=== PATIENT | male | born 1985 | race Caucasian/White ===

== ENCOUNTER 2018-04-30 14:32 | Emergency (ER) | payer BC ==
--- NOTE | 2018-04-30 15:52 | RAD REPORT ---
EXAM DESCRIPTION: RAD - Chest Single View - 04/30/2018 3:34 pm CLINICAL HISTORY: Chest pain, chest tightness COMPARISON: None. TECHNIQUE: AP portable chest image was obtained 1533 hours . FINDINGS: Lungs are clear. Heart and vasculature are normal. No measurable pleural effusion and no p neumothorax. No gross bony abnormality seen. No acute aortic findings suspected. IMPRESSION: No acute cardiopulmonary process.
[2018-04-30 15:53] LABS: Absolute Lymphocytes (CBC) 2.2 K/uL (0.7-4.9); Absolute Monocytes 0.7 K/uL (0.1-1.3); Absolute Neutrophil 5.9 K/uL (1.8-8.0); Basophils % 0.4 % (0-1.3); Eosinophils % 2.2 % (0-4.4); Hematocrit 44.7 % (39.6-49.0); Lymphocytes % 24.4 % (15.3-44.8); MCH 30.1 pg (27.0-35.0); MCV 87.4 fL (80-100); MPV 7.8 fL (7.6-11.3); Monocytes % 7.4 % (3.3-12.3); RBC Red Blood Cell Count 5.11 M/uL (4.33-5.43)
[2018-04-30 16:05] LABS: Potassium 3.8 mEq/L (3.6-5.0)
[2018-04-30 16:11] LABS: Albumin 4.2 g/dL (3.2-5.5); Bilirubin Direct 0.1 mg/dL (0-0.2); Bilirubin Total 0.7 mg/dL (0.3-1.2); Protein, Total 7.6 g/dL (6.0-8.3)
--- NOTE | 2018-04-30 17:23 | ER ---
Nurse's Notes [facility] Name: Nile Gallagher Age: 32 yrs Sex: Male : 1985 Arrival Date: 04/30/2018 Time: 14:35 Bed 30 Private MD: Jonas Flores Diagnosis: Chest pain, unspecified Presentation: 04/30 14:49 Presenting complaint: Patient states: Report chest tightness and left arm tingling for aj 2 days. Reports relief of chest tightness when burping. Transition of care: patient was not received from another setting of care. Onset of symptoms was April 28, 2018. Risk Assessment: Do you want to hurt yourself or someone else? Patient reports no desire to harm self or others. Care prior to arrival: None. 14:49 Method Of Arrival: Ambulatory aj 14:49 Acuity: COLT 3 aj 18:00 Initial Sepsis Screen: Does the patient meet any 2 criteria? No. Patient's initial mb3 sepsis screen is negative. Does the patient have a suspected source of infection? No. Patient's initial sepsis screen is negative. Triage Assessment: 14:51 General: Appears in no apparent distress. comfortable, Behavior is calm, cooperative, aj appropriate for age. Pain: Complains of pain in chest. Neuro: Level of Consciousness is awake, alert, obeys commands, Oriented to person, place, time, situation, Appropriate for age. Neuro: Reports paresthesias in left arm. Cardiovascular: Reports chest pain. Respiratory: Airway is patent Respiratory effort is even, unlabored, Respiratory pattern is regular, symmetrical. Derm: Skin is intact, is healthy with good turgor, Skin is pink, warm \T\ dry. normal. Historical: - Allergies: 14:51 No Known Allergies; aj - Home Meds: 14:51 amlodipine oral [Active]; Buspirone Oral [Active]; pantoprazole oral oral [Active]; aj - PMHx: 14:51 Anxiety; Hypertension; GERD; aj - PSHx: 14:51 Kidney stents; Hernia repair; aj - Immunization history:: Adult Immunizations up to date. - Social history:: Smoking status: Patient/guardian denies using tobacco. - Ebola Screening: : Patient negative for fever greater than or equal to 101.5 degrees Fahrenheit, and additional compatible Ebola Virus Disease symptoms Patient denies exposure to infectious person Patient denies travel to an Ebola-affected area in the 21 days before illness onset No symptoms or risks identified at this time. Screenin:54 Abuse screen: Denies threats or abuse. Nutritional screening: No deficits noted. mb3 Tuberculosis screening: No symptoms or risk factors identified. Fall Risk None identified. Assessment: 15:51 General: Appears in no apparent distress. comfortable, well groomed, Behavior is mb3 cooperative, appropriate for age, anxious. Pain: Denies pain. Complains of pain in has chest pain off and on for over 2 days, worse today Pain does not radiate. Pain began 1 day ago. Neuro: No deficits noted. Level of Consciousness is awake, alert, obeys commands, Oriented to person, place, time, situation, Appropriate for age. Cardiovascular: No deficits noted. Reports chest pain, Heart tones S1 S2 present Capillary refill < 3 seconds Patient's skin is warm and dry. Pulses are all present. Respiratory: No deficits noted. Airway is patent Respiratory effort is even, unlabored, Respiratory pattern is regular, symmetrical, Breath sounds are clear bilaterally. GI: No deficits noted. Abdomen is flat, Bowel sounds present X 4 quads. : No deficits noted. No signs and/or symptoms were reported regarding the genitourinary system. Vital Signs: 14:51 BP 139 / 82; Pulse 88; Resp 19; Temp 98.1; Pulse Ox 97% on R/A; Weight 115.67 kg; aj Height 5 ft. 10 in. (177.80 cm); 16:06 BP 118 / 75; Pulse 71; Resp 16; Pulse Ox 96% on R/A; mb3 17:59 BP 115 / 69; Pulse 64; Resp 16; Pulse Ox 98% on R/A; mb3 14:51 Body Mass Index 36.59 (115.67 kg, 177.80 cm) aj ED Course: 14:35 Patient arrived in ED. as 14:35 Jonas Flores MD is Private Physician. as 14:50 Triage completed. aj 14:51 Arm band placed on right wrist. Patient placed in an exam room. aj 14:59 Henry Garcia, RN is Primary Nurse. mb3 15:00 Patient has correct armband on for positive identification. Placed in gown. Bed in low mb3 position. Call light in reach. Side rails up X 1. playground monitor on. Pulse ox on. NIBP on. 15:05 Griffin Soto NP is PHCP. pm1 15:05 John Gastelum MD is Attending Physician. pm1 15:31 XRAY Chest (1 view) In Process Unspecified. EDMS 15:31 Inserted saline lock: 22 gauge in right forearm, using aseptic technique. Blood mb3 collected. Patient maintains SpO2 saturation greater than 95% on room air. 15:34 EKG done, by solar installer technician. reviewed by Griffin Soto NP. sm3 17:23 Jonas Flores MD is Referral Physician. pm1 17:59 No provider procedures requiring assistance completed. IV discontinued, intact, mb3 bleeding controlled, No redness/swelling at site. Pressure dressing applied. Administered Medications: No medications were administered Outcome: 17:23 Discharge ordered by . pm1 17:59 Discharged to home ambulatory. mb3 17:59 Condition: stable 17:59 Discharge instructions given to patient, Instructed on discharge instructions, follow up and referral plans. Demonstrated understanding of instructions, follow-up care. 18:01 Patient left the ED. mb3 Signatures: Dispatcher [employer] EDMS Joyce Bolanos, [place] Lamb RN as Griffin Soto, K[employer] CORPORATE CLAIMS EXAMINER pm1 Henry Garcia RN RN mb3 Mariaelena Reid 3
--- NOTE | 2018-04-30 17:23 | EDPHYS ---
Physician Documentation [facility] Name: Nile Gallagher Age: 32 yrs Sex: Male : 1985 Arrival Date: 04/30/2018 Time: 14:35 Bed 30 Private MD: Jonas Flores ED Physician John Gastelum HPI: 04/30 16:02 This 32 yrs old Male presents to ER via Ambulatory with complaints of Chest pm1 pain. 16:11 The patient or guardian reports chest pain that is located primarily in the mid-sternal pm1 area. The pain does not radiate. Associated signs and symptoms: Pertinent negatives: abdominal pain, cough, diaphoresis, dizziness, headache, nausea, shortness of breath, vomiting. The chest pain is described as a pressure. Duration: The patient or guardian reports multiple episodes. Modifying factors: The symptoms are alleviated by burping and distracting himself from it by doing activities. the symptoms are aggravated by emotionally stressful situations, Anxiety. Severity of pain: in the emergency department the pain has resolved. The patient has been recently seen by a physician: the patient's primary care provider, Adjustment to blood pressure medications recenlty. Patient reports numbness to finger tips and forearms for multiple years since he was a child that do not bother him. Patient without any current numbness. His episodes of of numbness have the same presentation as prior episodes. not worse. Historical: - Allergies: 14:51 No Known Allergies; aj - Home Meds: 14:51 amlodipine oral [Active]; Buspirone Oral [Active]; pantoprazole oral oral [Active]; aj - PMHx: 14:51 Anxiety; Hypertension; GERD; aj - PSHx: 14:51 Kidney stents; Hernia repair; aj - Immunization history:: Adult Immunizations up to date. - Social history:: Smoking status: Patient/guardian denies using tobacco. - Ebola Screening: : Patient negative for fever greater than or equal to 101.5 degrees Fahrenheit, and additional compatible Ebola Virus Disease symptoms Patient denies exposure to infectious person Patient denies travel to an Ebola-affected area in the 21 days before illness onset No symptoms or risks identified at this time. ROS: 16:11 Constitutional: Negative for fever, chills, and weight loss, Eyes: Negative for injury, pm1 pain, redness, and discharge, ENT: Negative for injury, pain, and discharge, Neck: Negative for injury, pain, and swelling, Respiratory: Negative for shortness of breath, cough, wheezing, and pleuritic chest pain. 16:11 Abdomen/GI: Negative for abdominal pain, nausea, vomiting, diarrhea, and constipation, Back: Negative for injury and pain, : Negative for injury, bleeding, discharge, and swelling, MS/Extremity: Negative for injury and deformity, Skin: Negative for injury, rash, and discoloration. 16:11 Cardiovascular: Positive for chest pain, Negative for edema, palpitations. 16:11 Neuro: Positive for resolved numbness to finger tips bilaterally . 16:11 Psych: Positive for anxiety. Exam: 16:16 Constitutional: This is a well developed, well nourished patient who is awake, alert, pm1 and in no acute distress. Head/Face: Normocephalic, atraumatic. Eyes: Pupils equal round and reactive to light, extra-ocular motions intact. Lids and lashes normal. Conjunctiva and sclera are non-icteric and not injected. Cornea within normal limits. Periorbital areas with no swelling, redness, or edema. ENT: Nares patent. No nasal discharge, no septal abnormalities noted. Tympanic membranes are normal and external auditory canals are clear. Oropharynx with no redness, swelling, or masses, exudates, or evidence of obstruction, uvula midline. Mucous membranes moist. Neck: Trachea midline, no thyromegaly or masses palpated, and no cervical lymphadenopathy. Supple, full range of motion without nuchal rigidity, or vertebral point tenderness. No Meningismus. Chest/axilla: Normal chest wall appearance and motion. Nontender with no deformity. No lesions are appreciated. Cardiovascular: Regular rate and rhythm with a normal S1 and S2. No gallops, murmurs, or rubs. No pulse deficits. Respiratory: Lungs have equal breath sounds bilaterally, clear to auscultation and percussion. No rales, rhonchi or wheezes noted. No increased work of breathing, no retractions or nasal flaring. Abdomen/GI: Soft, non-tender, with normal bowel sounds. No distension or tympany. No guarding or rebound. No evidence of tenderness throughout. Back: No spinal tenderness. No costovertebral tenderness. Full range of motion. Skin: Warm, dry with normal turgor. Normal color with no rashes, no lesions, and no evidence of cellulitis. MS/ Extremity: Pulses equal, no cyanosis. Neurovascular intact. Full, normal range of motion. 16:16 Neuro: Orientation: is normal, Motor: moves all fours, strength is normal, strength is 5/5 in all extremities. Vital Signs: 14:51 BP 139 / 82; Pulse 88; Resp 19; Temp 98.1; Pulse Ox 97% on R/A; Weight 115.67 kg; aj Height 5 ft. 10 in. (177.80 cm); 16:06 BP 118 / 75; Pulse 71; Resp 16; Pulse Ox 96% on R/A; mb3 17:59 BP 115 / 69; Pulse 64; Resp 16; Pulse Ox 98% on R/A; mb3 14:51 Body Mass Index 36.59 (115.67 kg, 177.80 cm) aj MDM: 15:07 Patient medically screened. pm1 16:16 Data reviewed: vital signs. Data interpreted: Pulse oximetry: on room air is 96 %. pm1 Interpretation: normal. 17:21 Counseling: I had a detailed discussion with the patient and/or guardian regarding: the pm1 historical points, exam findings, and any diagnostic results supporting the discharge/admit diagnosis, lab results, radiology results, the need for outpatient follow up, to return to the emergency department if symptoms worsen or persist or if there are any questions or concerns that arise at home. 04/30 15:19 Order name: Basic Metabolic Panel; Complete Time: 16:17 pm1 04/30 15:19 Order name: CBC with Diff; Complete Time: 16:17 pm1 04/30 15:19 Order name: LFT's; Complete Time: 16:17 pm1 04/30 15:19 Order name: Troponin (emerg Dept Use Only); Complete Time: 16:17 pm1 04/30 15:19 Order name: XRAY Chest (1 view); Complete Time: 15:56 pm1 04/30 15:19 Order name: EKG; Complete Time: 15:19 pm1 04/30 15:19 Order name: Cardiac monitoring; Complete Time: 15:54 pm1 04/30 15:19 Order name: EKG - Nurse/Tech; Complete Time: 15:54 pm1 04/30 15:19 Order name: IV Saline Lock; Complete Time: 15:54 pm1 04/30 15:19 Order name: Labs collected and sent; Complete Time: 15:54 pm1 04/30 15:19 Order name: O2 Per Protocol; Complete Time: 15:54 pm1 04/30 15:19 Order name: O2 Sat Monitoring; Complete Time: 15:54 pm1 Administered Medications: No medications were administered Disposition: : Co-signature as Attending Physician, John Gastelum MD. rn Disposition: 04/30/18 17:23 Discharged to Home. Impression: Chest pain, unspecified. - Condition is Stable. - Discharge Instructions: Nonspecific Chest Pain. - Medication Reconciliation Form, Thank You Letter form. - Follow up: Emergency Department; When: As needed; Reason: Worsening of condition. Follow up: Jonas Flores; When: 2 - 3 days; Reason: Recheck today's complaints, Continuance of care, Re-evaluation by your physician. - Problem is new. - Symptoms have improved. Signatures: Dispatcher [employer] EDMS Joyce Bolanos RN John Alvarado MD MD rn Marinas, Patrick, KELIN NOODLE MAKER pm1 Henry Garcia, RN RN mb3 Corrections: (The following items were deleted from the chart) 18:01 17:23 04/30/2018 17:23 Discharged to Home. Impression: Chest pain, unspecified. mb3 Condition is Stable. Discharge Instructions: Nonspecific Chest Pain. Forms are Medication Reconciliation Form, Thank You Letter, Antibiotic Education, Prescription Opioid Use. Follow up: Emergency Department; When: As needed; Reason: Worsening of condition. Follow up: Jonas Flores; When: 2 - 3 days; Reason: Recheck today's complaints, Continuance of care, Re-evaluation by your physician. Problem is new. Symptoms have improved. pm1
--- NOTE | 2018-04-30 22:40 | EKG ---
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
== END 2018-04-30 18:01 | disposition home or self-care (01) ==
LOC: ER 14:32
DX: R07.9 Chest pain, unspecified (principal); I10 Essential (primary) hypertension
CPT/HCPCS: 36415; 71045; 80048; 80076; 84484; 85025; 93005; 99285